=== PATIENT | female | born 1985 | race Caucasian/White ===

== ENCOUNTER 2023-02-13 09:38 | Inpatient (IN) | payer MEDICAID ==
[~2023-02-13] VITALS: Ht 165.1 cm; Wt 93.4 kg
[~2023-02-13 09:38] MED LIST: MAGN400C PO; PREN-88 PO
[2023-02-13] MEDS ORDERED: METHYLERGONOVINE MALEATE 0.2 MG/ML IM PRN (11:15)
[2023-02-13 12:21] LABS: BASOPHILS % 0.3 % (0.0-2.0); CLARITY URINE CLEAR (CLEAR); COLOR URINE YELLOW (YELLOW); EOSINOPHILS % 0.4 % (0.0-5.0); HEMATOCRIT. 38.1 % (36.0-48.0); HEMOGLOBIN. 12.9 g/dL (12.0-16.0); KETONES URINE NEGATIVE (NEGATIVE); LEUKOCYTE ESTERASE URINE NEGATIVE (NEGATIVE); LYMPHOCYTES % 21.6 % (20.0-50.0); MEAN CORPUSCULAR HEMOGLOBIN 28.8 pg (28.0-32.0); MEAN CORPUSCULAR VOLUME 84.9 fL (81.0-99.0); MEAN PLATELET VOLUME 8.9 fl (7.4-10.4); MONOCYTES % 5.5 % (2.0-8.0); NEUTROPHILS % 72.2 % (40.0-76.0); NITRITE URINE NEGATIVE (NEGATIVE); OCCULT BLOOD URINE 1+ (NEGATIVE); PLATELET 291 x1000/uL (130-400); PROTEIN URINE 1+ (NEGATIVE); RED BLOOD CELL COUNT 4.48 mill/uL (4.2-5.4); RED CELL DISTRIBUTION WIDTH 14.1 % (11.6-14.6); SPECIFIC GRAVITY URINE 1.006 (1.005-1.030); UROBILINOGEN URINE 0.2 E.U./dL (0.2-1.0)
[2023-02-13 12:31] LABS: INR 0.9; PARTIAL THROMBOPLASTIN TIME 27.3 sec (23.4-31.0); PROTHROMBIN TIME 9.3 sec (9.6-11.0)
[2023-02-13 12:59] LABS: *AMPHETAMINES SCREEN URINE NEGATIVE (NEGATIVE); *BARBITURATES SCREEN URINE NEGATIVE (NEGATIVE); *BENZODIAZEPINES SCREEN URINE NEGATIVE (NEGATIVE); *COCAINE SCREEN URINE NEGATIVE (NEGATIVE); CANNABINOID URINE SCREEN NEGATIVE (NEGATIVE); METHADONE URINE SCREEN NEGATIVE (NEGATIVE); OPIATES URINE SCREEN NEGATIVE (NEGATIVE); PHENCYCLIDINE URINE SCREEN NEGATIVE (NEGATIVE)
[2023-02-13] MEDS: LACTATED RINGERS 1,000 ML IV SCH (13:45)
[2023-02-13 15:35] LABS: HEPATITIS B SURFACE ANTIGEN NEGATIVE
[2023-02-13] MEDS ORDERED: DIPHENHYDRAMINE 50MG/ML VIAL ONE (16:19)
[2023-02-13] MEDS ORDERED: MORPHINE SULFATE/PF 1MG/ML 10ML AMP ONE (16:19)
[2023-02-13] MEDS ORDERED: FENTANYL CITRATE/PF 50MCG/ML 2ML VIAL ONE (16:19)
[2023-02-13] MEDS ORDERED: ONDANSETRON HCL 4MG/2ML INJ ONE (16:19)
[2023-02-13] MEDS ORDERED: OXYTOCIN 10 UNITS/ML 1ML ONE (16:19)
[2023-02-13] MEDS ORDERED: CEFAZOLIN SODIUM 1000MG/VIAL ONE (16:19)
[2023-02-13] MEDS ORDERED: METOCLOPRAMIDE HCL 10MG/2ML VIAL ONE (16:56)
[2023-02-13] MEDS ORDERED: KETOROLAC 60MG/2ML VIAL IM ONE (17:19)
[2023-02-13] MEDS: OXYTOCIN 30 UNITS/500ML NS PMX 500 ML IV SCH (18:36)
[2023-02-13] MEDS ORDERED: DIPHENHYDRAMINE 50MG/ML VIAL IV PRN (18:45)
[2023-02-13] MEDS ORDERED: NALOXONE HCL 0.4 MG/ML 1ML VIAL IV PRN (18:45)
[2023-02-13] MEDS ORDERED: BUTORPHANOL TARTRATE 2 MG/ML VIAL IV PRN (18:45)
[2023-02-13] MEDS ORDERED: HEMORRHOIDAL SUPP PR PRN (19:30)
[2023-02-13] MEDS ORDERED: BISACODYL 10MG SUPP PR PRN (19:30)
[2023-02-13] MEDS ORDERED: ACETAMINOPHEN WITH CODEINE 300/30MG TABLET PO PRN (19:30)
[2023-02-13] MEDS ORDERED: IBUPROFEN 400MG TABLET PO PRN (19:30)
[2023-02-13] MEDS ORDERED: LANOLIN OINT 7GM TUBE TOP PRN (19:30)
[2023-02-13] MEDS ORDERED: RHO(D) IMMUNE GLOBULIN 300 MCG/SYR IM PRN (19:30)
[2023-02-13] MEDS ORDERED: DIPHENHYDRAMINE 25MG CAPSULE PO PRN (19:30)
[2023-02-13] MEDS ORDERED: OXYTOCIN 30 UNITS/500ML NS PMX 500 ML IV SCH (19:30)
[2023-02-13] MEDS ORDERED: ONDANSETRON HCL 4MG/2ML INJ IV PRN (19:30)
[2023-02-13 21:05] VITALS: BP 102/52
[2023-02-13] MEDS: SIMETHICONE 80MG TABLET CHEW PO SCH (22:35)
[2023-02-13] MEDS: DOCUSATE SODIUM 100MG CAPSULE PO SCH (22:35)
[2023-02-13] MEDS: MAGNESIUM/ALUMINUM HYDROXIDE/SIMETHICONE 30ML UDC PO SCH (22:35)
[2023-02-13] MEDS: KETOROLAC 30MG/ML VIAL IV SCH (23:26)
[2023-02-13 23:30] VITALS: BP 109/57
[2023-02-14] MEDS: OXYTOCIN 30 UNITS/500ML NS PMX 500 ML IV SCH (01:00)
[2023-02-14 04:00] VITALS: BP 102/53
[2023-02-14] MEDS: LACTATED RINGERS 1,000 ML IV SCH (04:56)
[2023-02-14] MEDS: KETOROLAC 30MG/ML VIAL IV SCH (05:46)
[2023-02-14] MEDS ORDERED: TETANUS, DIPHTHERIA, PERTUSSIS VAC/PF 0.5ML (>10YR OLD) IM ONE (06:30)
[2023-02-14 07:10] LABS: BASOPHILS % 0.4 % (0.0-2.0); EOSINOPHILS % 0.3 % (0.0-5.0); HEMATOCRIT. 32.6 % (36.0-48.0); HEMOGLOBIN. 11.2 g/dL (12.0-16.0); MEAN CORPUSCULAR HEMOGLOBIN 29.3 pg (28.0-32.0); MEAN CORPUSCULAR VOLUME 85.4 fL (81.0-99.0); MEAN PLATELET VOLUME 9.2 fl (7.4-10.4); MONOCYTES % 6.4 % (2.0-8.0); NEUTROPHILS % 73.9 % (40.0-76.0); PLATELET 248 x1000/uL (130-400); RED BLOOD CELL COUNT 3.82 mill/uL (4.2-5.4); RED CELL DISTRIBUTION WIDTH 13.9 % (11.6-14.6)
[2023-02-14 07:23] VITALS: BP 104/62
[2023-02-14] MEDS: FERROUS SULFATE 325MG TABLET PO SCH ×3 (07:44→17:30)
[2023-02-14] MEDS: MAGNESIUM/ALUMINUM HYDROXIDE/SIMETHICONE 30ML UDC PO SCH ×4 (07:44→21:59)
[2023-02-14] MEDS: SIMETHICONE 80MG TABLET CHEW PO SCH ×4 (07:44→21:59)
[2023-02-14] MEDS ORDERED: PRENATAL VIT/FE FUMARATE/FA TABLET PO SCH (09:00)
[2023-02-14] MEDS: IBUPROFEN 800MG TABLET PO PRN ×2 (12:48→21:59)
[2023-02-14 15:17] VITALS: BP 107/68
[2023-02-14 19:00] VITALS: BP 120/71
[2023-02-14] MEDS: DOCUSATE SODIUM 100MG CAPSULE PO SCH (21:59)
[2023-02-15 03:00] VITALS: BP 111/67
[2023-02-15 09:30] VITALS: BP 117/84
[2023-02-15] MEDS: SIMETHICONE 80MG TABLET CHEW PO SCH (12:54)
[2023-02-15] MEDS: FERROUS SULFATE 325MG TABLET PO SCH (12:54)
[2023-02-15] MEDS: MAGNESIUM/ALUMINUM HYDROXIDE/SIMETHICONE 30ML UDC PO SCH (12:54)
[2023-02-15] MEDS: IBUPROFEN 800MG TABLET PO PRN (12:54)
== END 2023-02-15 14:00 | disposition home or self-care (01) | DRG 540 ==
LOC: 8 EST LDRP 09:38 → OBSVTOIN 09:38 → 8 EST LDRP 09:55 → 8EST 21:05
PROVIDERS: ADMIT Obstetrics & Gynecology; ATTEND Obstetrics & Gynecology
PROC: 10D00Z1 Extraction of Products of Conception, Low, Open Approach (ICD-10-PCS; principal; 2023-02-13)
DX: O60.14X0 Preterm labor third trimester with preterm delivery third trimester, not applicable or unspecified (principal); O34.211 Maternal care for low transverse scar from previous cesarean delivery; O42.913 Preterm premature rupture of membranes, unspecified as to length of time between rupture and onset of labor, third trimester; Z20.822 Contact with and (suspected) exposure to COVID-19; Z3A.35 35 weeks gestation of pregnancy; Z37.0 Single live birth
CPT/HCPCS: 36415; 76805; 76818; 80305; 81003; 85025; 86592; 86703; 86762; 86850; 86900; 87340; 87426; 88307; 90715; J0690; J1200; J1885; J2274; J2405; J2765; J3010; J7120; J2590